=== PATIENT | female | born 1945 | race Asian ===

== ENCOUNTER 2018-04-10 12:26 | Emergency (ER) | payer OTHER ==
--- NOTE | 2018-04-10 15:09 | RAD ---
PA AND LATERAL CHEST: Date: 04/10/18 HISTORY: Low oxygen saturation. Diagnosed with flu today. COMPARISON: 09/05/16. FINDINGS: Cardiac silhouette and pulmonary vasculature are within normal limits. The lungs are clear. Degenerat yuridia changes are again seen in the spine. There has been no interval change from prior exam. IMPRESSION: No acute cardiopulmonary process. POS: [facility]
== END 2018-04-10 15:10 | disposition home or self-care (01) ==
LOC: ERS 12:26
DX: R05 Cough (principal)
CPT/HCPCS: 71046

== ENCOUNTER 2019-05-26 12:55 | Outpatient (CLI) | payer OTHER ==
--- NOTE | 2019-05-26 13:23 | MMO ---
Bilateral MAMMO Bilat Screen [facility]. CLINICAL HISTORY: Patient is 73 years old and is seen for screening. The patient has no family history of breast cancer. The patient has no personal history of cancer. VIEWS: The views performed were: bilateral craniocaudal and bilateral mediolateral oblique. FILMS COMPARED: The present examination has been compared to prior imaging studies performed at [facility] on 01/31/2016 and 02/15/2016. This study has been interpreted with the assistance of computer-aided detection. MAMMOGRAM FINDINGS: There are scattered fibroglandular densities. There are vascular calcifications seen in both breasts. There are no suspicious masses, suspicious calcifications, or new areas of architectural distortion. IMPRESSION: A ROUTINE FOLLOW-UP MAMMOGRAM IN 1 YEAR IS RECOMMENDED. ACR BI-RADS Category 2 - Benign finding MAMMOGRAPHY NOTE: 1. A negative mammogram report should not delay a biopsy if a dominant of clinically suspicious mass is present. 2. Approximately 10% to 15% of breast cancers are not detected by mammography. 3. Adenosis and dense breasts may obscure an underlying neoplasm. Reported by: OPAL FERGUSON MD Electonically Signed: [id number]
== END 2019-05-26 12:56 | disposition home or self-care (01) ==
LOC: BICMAMMO 12:55
PROVIDERS: ATTEND Family Medicine
DX: Z12.31 Encounter for screening mammogram for malignant neoplasm of breast (principal)
CPT/HCPCS: 77067

== ENCOUNTER 2020-08-03 15:25 | Inpatient (IN) | payer OTHER ==
[~2020-08-03 15:25] MED LIST: Iopamidol-370 76% 500 ML 1 ML ONE
[2020-08-03] MEDS ORDERED: Diltiazem 125 MG/25 ML ONE (16:13)
[2020-08-03 16:47] LABS: #Eosinphils 0.1 thou/uL (0.0-0.7); #Lymphocytes 1.5 thou/uL (1.20-3.40); #Monocytes 0.3 thou/uL (0.11-0.59); #Neutrophils 3.8 thou/uL (1.40-6.50); %Basophils 0.5 % (0.0-1.0); %Eosinophils 2.2 % (0.0-10.0); %Lymphocytes 26.6 % (21.0-51.0); %Monocytes 4.7 % (0.0-10.0); %Neutrophils 65.9 % (42.0-75.0); Hemoglobin 12.6 g/dL (12.0-16.0); Mean Corpuscular HGB CONC 32.2 g/dL (32.0-36.0); Mean Corpuscular Hemoglobin 29.2 pg (27.0-31.0); Mean Corpuscular Volume 90.5 fL (78.0-98.0); Platelet Count 267 thou/uL (130-400); RBC Distribution Width 12.8 % (11.5-14.5); Red Blood Cell (RBC) Count 4.32 mill/uL (4.20-5.40); White Blood Cell (WBC) Count 5.7 thou/uL (4.8-10.8)
[2020-08-03 17:07] LABS: ALT (SGPT) 13 U/L (8-55); AST (SGOT) 20 U/L (5-34); Albumin 3.5 g/dL (3.4-4.8); Alkaline Phosphatase 82 U/L (40-110); Anion Gap 13 mmol/L (10-20); BUN (Urea Nitrogen) 12 mg/dL (9.8-20.1); Bilirubin, Total 0.5 mg/dL (0.2-1.2); Calc. Creatinine Clearance 0 mL/min (70-130); Calcium 8.8 mg/dL (7.8-10.44); Carbon Dioxide 23 mmol/L (23-31); Chloride 104 mmol/L (98-107); Globulin 5.5 g/dL (2.4-3.5); Glucose 103 mg/dL (83-110); Magnesium 1.8 mg/dL (1.6-2.6); Potassium 3.7 mmol/L (3.5-5.1); Sodium 136 mmol/L (136-145)
[2020-08-03] MEDS ORDERED: Ondansetron ODT 4 MG TAB PO PRN (18:33)
[2020-08-03] MEDS ORDERED: Acetaminophen 325 MG TAB PO PRN (18:33)
[2020-08-03] MEDS ORDERED: Senokot S 8.6-50 MG TAB PO PRN (18:33)
[2020-08-03] MEDS ORDERED: Ondansetron PF 4 MG/2 ML Vial IVP PRN (18:33)
[2020-08-03] MEDS ORDERED: Diltiazem 125 MG in Sodium Chloride 0.9% 100 ML IVPB SCH (18:45)
[2020-08-03] MEDS ORDERED: Magnesium 2 GM/50 ML 2 GM in Premix Bag 1 BAG IVPB SCH (18:45)
[2020-08-03 19:04] LABS: Bacteria/HPF None Seen HPF (None Seen); Bilirubin Negative (Negative); Blood, Urine Negative (Negative); Clarity Clear (Clear); Glucose, Urine (Dipstick) Normal (Negative); Ketone, Urine Negative (Negative); Leukocyte Negative Leu/uL (Negative); Nitrite Negative (Negative); Protein, Urine (Dipstick) Negative (Neg-Trace); RBC/HPF 0-3 HPF (0-3); Specific Gravity, Urine 1.009 (1.002-1.036); Squamous Epithelial None Seen HPF (0-3); Urobilinogen Normal mg/dL (Less than 2); WBC/HPF 0-3 HPF (0-3); pH, Urine 6.5 (5.0-9.0)
[2020-08-03 19:24] LABS: INR-International Normal Ratio 1.1; PTT 28.6 sec (22.9-36.1); Prothrombin Time 14.3 sec (12.0-14.7)
[2020-08-03 19:53] LABS: Troponin I 0.016 ng/mL (< 0.028)
[2020-08-03 20:14] VITALS: BMI 25.2
[2020-08-03] MEDS ORDERED: Magnesium 2 GM/50 ML BAG (IN WATER) ONE (20:20)
[2020-08-03] MEDS ORDERED: Enoxaparin Sodium 60 MG/0.6 ML SYRINGE SC SCH (20:30)
[2020-08-03] MEDS ORDERED: Famotidine 20 MG TAB ONE (20:39)
[2020-08-03] MEDS ORDERED: Enoxaparin Sodium 60 MG/0.6 ML SYRINGE ONE (20:39)
[2020-08-03] MEDS: Famotidine 20 MG TAB PO SCH (20:53)
[2020-08-03 23:42] LABS: Troponin I 0.019 ng/mL (< 0.028)
[2020-08-04 02:33] LABS: SARS-CoV-2 PCR by NAA Not Detected (NotDetected)
[2020-08-04 04:30] LABS: #Eosinphils 0.1 thou/uL (0.0-0.7); #Lymphocytes 1.8 thou/uL (1.20-3.40); #Monocytes 0.4 thou/uL (0.11-0.59); #Neutrophils 2.6 thou/uL (1.40-6.50); %Basophils 0.6 % (0.0-1.0); %Eosinophils 2.7 % (0.0-10.0); %Lymphocytes 37.2 % (21.0-51.0); %Monocytes 7.1 % (0.0-10.0); %Neutrophils 52.5 % (42.0-75.0); Hemoglobin 11.9 g/dL (12.0-16.0); Mean Corpuscular Hemoglobin 29.9 pg (27.0-31.0); Mean Corpuscular Volume 90.6 fL (78.0-98.0); Platelet Count 249 thou/uL (130-400); RBC Distribution Width 12.7 % (11.5-14.5); Red Blood Cell (RBC) Count 3.97 mill/uL (4.20-5.40); White Blood Cell (WBC) Count 4.9 thou/uL (4.8-10.8)
[2020-08-04 04:58] LABS: Anion Gap 12 mmol/L (10-20); BUN (Urea Nitrogen) 9 mg/dL (9.8-20.1); Calc. Creatinine Clearance 64 mL/min (70-130); Calcium 8.4 mg/dL (7.8-10.44); Carbon Dioxide 22 mmol/L (23-31); Cardiac Risk 2.9 (Less than 4.5); Chloride 106 mmol/L (98-107); Cholesterol 103 mg/dl (< 200 Desired); Glucose 118 mg/dL (83-110); HDL Cholesterol 35 mg/dL (>60 Neg Risk); LDL Cholesterol, Calculated 52 mg/dL; Magnesium 2.1 mg/dL (1.6-2.6); Potassium 4.1 mmol/L (3.5-5.1); Sodium 136 mmol/L (136-145); Triglycerides 80 mg/dL (Less than 150)
[2020-08-04] MEDS ORDERED: Enoxaparin Sodium 60 MG/0.6 ML SYRINGE SC SCH (09:00)
[2020-08-04] MEDS ORDERED: Metoprolol Tartrate 25 MG TAB PO SCH (09:00)
[2020-08-04] MEDS: Famotidine 20 MG TAB PO SCH ×2 (09:18→22:22)
[2020-08-04] MEDS: Aspirin 81 mg Enteric Coated Tablet PO SCH (09:18)
[2020-08-04] MEDS: Apixaban 5 MG TAB PO SCH (22:22)
[2020-08-05 04:43] LABS: #Eosinphils 0.2 thou/uL (0.0-0.7); #Lymphocytes 1.5 thou/uL (1.20-3.40); #Monocytes 0.2 thou/uL (0.11-0.59); #Neutrophils 2.1 thou/uL (1.40-6.50); %Basophils 0.9 % (0.0-1.0); %Eosinophils 4.4 % (0.0-10.0); %Monocytes 5.5 % (0.0-10.0); %Neutrophils 52.3 % (42.0-75.0); Hemoglobin 12.2 g/dL (12.0-16.0); Mean Corpuscular Hemoglobin 29.9 pg (27.0-31.0); Mean Corpuscular Volume 90.5 fL (78.0-98.0); Mean Platelet Volume 6.8 fL (7.4-10.4); Platelet Count 258 thou/uL (130-400); RBC Distribution Width 12.8 % (11.5-14.5); Red Blood Cell (RBC) Count 4.07 mill/uL (4.20-5.40)
[2020-08-05 05:08] LABS: Anion Gap 11 mmol/L (10-20); BUN (Urea Nitrogen) 14 mg/dL (9.8-20.1); Calc. Creatinine Clearance 62 mL/min (70-130); Calcium 8.6 mg/dL (7.8-10.44); Carbon Dioxide 24 mmol/L (23-31); Chloride 108 mmol/L (98-107); Glucose 117 mg/dL (83-110); Magnesium 1.9 mg/dL (1.6-2.6); Phosphorus 3.5 mg/dL (2.3-4.7); Potassium 3.8 mmol/L (3.5-5.1); Sodium 139 mmol/L (136-145)
[2020-08-05] MEDS: Aspirin 81 mg Enteric Coated Tablet PO SCH (09:52)
[2020-08-05] MEDS: Famotidine 20 MG TAB PO SCH ×2 (09:52→21:05)
[2020-08-05] MEDS: Apixaban 5 MG TAB PO SCH ×2 (09:52→21:05)
[2020-08-05] MEDS: Digoxin 0.25 MG TAB PO SCH (09:52)
[2020-08-05] MEDS: Metoprolol Tartrate 25 MG TAB PO SCH (21:05)
[2020-08-06 04:33] LABS: #Basophils 0.1 thou/uL (0.0-0.2); #Eosinphils 0.2 thou/uL (0.0-0.7); #Lymphocytes 1.6 thou/uL (1.20-3.40); #Monocytes 0.2 thou/uL (0.11-0.59); #Neutrophils 1.7 thou/uL (1.40-6.50); %Basophils 1.5 % (0.0-1.0); %Eosinophils 5.1 % (0.0-10.0); %Lymphocytes 41.6 % (21.0-51.0); %Monocytes 5.8 % (0.0-10.0); Hemoglobin 12.6 g/dL (12.0-16.0); Mean Corpuscular HGB CONC 33.5 g/dL (32.0-36.0); Mean Corpuscular Hemoglobin 30.5 pg (27.0-31.0); Mean Corpuscular Volume 91.3 fL (78.0-98.0); Mean Platelet Volume 6.8 fL (7.4-10.4); Platelet Count 253 thou/uL (130-400); RBC Distribution Width 12.8 % (11.5-14.5); Red Blood Cell (RBC) Count 4.13 mill/uL (4.20-5.40); White Blood Cell (WBC) Count 3.7 thou/uL (4.8-10.8)
[2020-08-06 04:49] LABS: Anion Gap 13 mmol/L (10-20); BUN (Urea Nitrogen) 13 mg/dL (9.8-20.1); Calc. Creatinine Clearance 66 mL/min (70-130); Calcium 9.1 mg/dL (7.8-10.44); Carbon Dioxide 21 mmol/L (23-31); Chloride 108 mmol/L (98-107); Glucose 120 mg/dL (83-110); Magnesium 1.8 mg/dL (1.6-2.6); Phosphorus 4.1 mg/dL (2.3-4.7); Sodium 138 mmol/L (136-145)
[2020-08-06] MEDS: Famotidine 20 MG TAB PO SCH ×2 (10:23→20:26)
[2020-08-06] MEDS: Digoxin 0.25 MG TAB PO SCH (10:24)
[2020-08-06] MEDS: Aspirin 81 mg Enteric Coated Tablet PO SCH (10:24)
[2020-08-06] MEDS: Apixaban 5 MG TAB PO SCH ×2 (10:24→20:26)
[2020-08-06] MEDS: Metoprolol Tartrate 25 MG TAB PO SCH ×2 (10:24→20:26)
[2020-08-07] MEDS: Digoxin 0.25 MG TAB PO SCH (09:03)
[2020-08-07] MEDS: Metoprolol Tartrate 25 MG TAB PO SCH ×2 (09:03→21:01)
[2020-08-07] MEDS: Famotidine 20 MG TAB PO SCH ×2 (09:03→21:01)
[2020-08-07] MEDS: Aspirin 81 mg Enteric Coated Tablet PO SCH (09:03)
[2020-08-07] MEDS: Apixaban 5 MG TAB PO SCH ×2 (09:03→21:01)
[2020-08-08 04:30] LABS: Hemoglobin 13.1 g/dL (12.0-16.0); Platelet Count 260 thou/uL (130-400)
[2020-08-08] MEDS: Digoxin 0.25 MG TAB PO SCH (08:36)
[2020-08-08] MEDS: Metoprolol Tartrate 25 MG TAB PO SCH (08:36)
[2020-08-08] MEDS: Aspirin 81 mg Enteric Coated Tablet PO SCH (08:36)
[2020-08-08] MEDS: Apixaban 5 MG TAB PO SCH (08:37)
[2020-08-08] MEDS: Famotidine 20 MG TAB PO SCH (09:13)
[2020-08-08 13:09] VITALS: BP 114/58; TEMP 97.3
== END 2020-08-08 14:23 | disposition home or self-care (01) | DRG 310 ==
LOC: ERS 15:25 → ERHOLD 18:18 → 2NO 08-04 00:14
PROVIDERS: ADMIT Internal Medicine; ATTEND Internal Medicine
DX: I48.91 Unspecified atrial fibrillation (principal); M06.9 Rheumatoid arthritis, unspecified; E83.42 Hypomagnesemia; N18.2 Chronic kidney disease, stage 2 (mild); I08.0 Rheumatic disorders of both mitral and aortic valves; Z20.822 Contact with and (suspected) exposure to COVID-19; R06.00 Dyspnea, unspecified
CPT/HCPCS: 36415; 71045; 71275; 80048; 80053; 80061; 81001; 82565; 83735; 83880; 84100; 84443; 84484; 85014; 85018; 85025; 85049; 85379; 85610; 85730; 87635; 93005; 93306; 94760; 96365; 96366; 96376; J1650; J3475; Q9967; U0003; U0005

== ENCOUNTER 2020-08-29 14:47 | Outpatient (CLI) | payer SELFPAY ==
[2020-08-29 15:45] LABS: #Eosinphils 0.2 10x3/uL (0.0-0.5); #Monocytes 0.5 10x3/uL (0.0-1.1); #Neutrophils 3.6 10x3/uL (1.5-8.4); %Basophils 0.7 % (0.0-2.0); %Eosinophils 2.9 % (0.0-6.0); %Lymphocytes 27.7 % (18.0-47.0); %Monocytes 7.8 % (0.0-10.0); %Neutrophils 60.4 % (40.0-75.0); Hemoglobin 9.2 g/dL (12.0-15.5); Mean Corpuscular HGB CONC 32.5 g/dL (32.0-36.0); Mean Corpuscular Hemoglobin 28.6 pg (27.0-33.0); Mean Corpuscular Volume 87.9 fl (81.6-98.3); Mean Platelet Volume 9.4 fl (7.4-10.4); RBC Distribution Width 13.5 % (11.5-14.5); Red Blood Cell (RBC) Count 3.22 10x6/uL (3.90-5.03); White Blood Cell (WBC) Count 5.9 10x3/uL (3.5-10.5)
[2020-08-29 15:47] LABS: Platelet Count 289 10x3/uL (150-450)
[2020-08-29 16:05] LABS: Anion Gap 15 mmol/L (10-20); BUN (Urea Nitrogen) 10 mg/dL (9.8-20.1); Calc. Creatinine Clearance 0 mL/min (70-130); Calcium 8.7 mg/dL (7.8-10.44); Carbon Dioxide 22 mmol/L (23-31); Chloride 103 mmol/L (98-107); Glucose 118 mg/dL (83-110); Potassium 4.4 mmol/L (3.5-5.1); Sodium 136 mmol/L (136-145)
[2020-08-30 01:18] LABS: SARS-CoV-2 PCR by NAA Not Detected (NotDetected)
== END 2020-08-29 14:48 | disposition home or self-care (01) ==
LOC: LABBT 14:47
PROVIDERS: ATTEND Internal Medicine Cardiovascular Disease
DX: Z01.818 Encounter for other preprocedural examination (principal); Z20.822 Contact with and (suspected) exposure to COVID-19; I48.91 Unspecified atrial fibrillation
CPT/HCPCS: 80048; 85025; 87635; 93005; 93010; U0003; U0005

== ENCOUNTER 2020-09-01 11:22 | Day surgery (SDC) | payer OTHER | END 2020-09-01 12:54 | disposition home or self-care (01) | LOC: CCL 11:22 | PROVIDERS: ATTEND Internal Medicine Cardiovascular Disease | DX: I48.19 Other persistent atrial fibrillation (principal); Z53.8 Procedure and treatment not carried out for other reasons; Z79.01 Long term (current) use of anticoagulants; Z79.82 Long term (current) use of aspirin; Z79.899 Other long term (current) drug therapy | CPT/HCPCS: 93005; 93010 ==

== ENCOUNTER 2020-11-21 15:11 | Inpatient (IN) | payer OTHER, SELFPAY ==
[2020-11-21 16:15] LABS: #Eosinphils 0.1 thou/uL (0.0-0.7); #Lymphocytes 1.4 thou/uL (1.20-3.40); #Monocytes 0.2 thou/uL (0.11-0.59); #Neutrophils 3.1 thou/uL (1.40-6.50); %Basophils 0.1 % (0.0-1.0); %Eosinophils 2.4 % (0.0-10.0); %Lymphocytes 29.2 % (21.0-51.0); %Monocytes 4.5 % (0.0-10.0); %Neutrophils 63.9 % (42.0-75.0); Hemoglobin 12.6 g/dL (12.0-16.0); Mean Corpuscular HGB CONC 33.7 g/dL (32.0-36.0); Mean Corpuscular Hemoglobin 30.7 pg (27.0-31.0); Mean Platelet Volume 6.9 fL (7.4-10.4); Platelet Count 247 thou/uL (130-400); RBC Distribution Width 12.9 % (11.5-14.5); Red Blood Cell (RBC) Count 4.09 mill/uL (4.20-5.40); White Blood Cell (WBC) Count 4.8 thou/uL (4.8-10.8)
[2020-11-21] MEDS ORDERED: Aspirin Chewable 81 MG TAB ONE (16:15)
[2020-11-21] MEDS ORDERED: Diltiazem 125 MG/25 ML ONE ×2 (16:16→16:19)
[2020-11-21 16:33] LABS: ALT (SGPT) 9 U/L (8-55); AST (SGOT) 24 U/L (5-34); Albumin 3.4 g/dL (3.4-4.8); Alkaline Phosphatase 82 U/L (40-110); Anion Gap 11 mmol/L (10-20); BUN (Urea Nitrogen) 10 mg/dL (9.8-20.1); Bilirubin, Total 0.5 mg/dL (0.2-1.2); Calc. Creatinine Clearance 0 mL/min (70-130); Calcium 8.7 mg/dL (7.8-10.44); Carbon Dioxide 24 mmol/L (23-31); Chloride 103 mmol/L (98-107); Globulin 6.3 g/dL (2.4-3.5); Glucose 150 mg/dL (83-110); Potassium 4.8 mmol/L (3.5-5.1); Protein, Total 9.7 g/dL (5.8-8.1); Sodium 133 mmol/L (136-145)
[2020-11-21 16:36] LABS: CK (CPK) 139 U/L (29-168); Lipase 42 U/L (8-78)
[2020-11-21 17:06] LABS: Bilirubin Negative (Negative); Blood, Urine Negative (Negative); Clarity Clear (Clear); Glucose, Urine (Dipstick) Normal (Negative); Ketone, Urine Negative (Negative); Leukocyte Negative Leu/uL (Negative); Nitrite Negative (Negative); Protein, Urine (Dipstick) Negative (Neg-Trace); Specific Gravity, Urine 1.008 (1.002-1.036); Urobilinogen Normal mg/dL (Less than 2)
[2020-11-21] MEDS ORDERED: Heparin 1,000 UNITS/500 ML BAG (ARTLINE) ONE (17:40)
[2020-11-21] MEDS ORDERED: Lidocaine 1% (PF) 30 ML VIAL ONE (17:40)
[2020-11-21 18:07] LABS: Digoxin Less than 0.15 ng/mL (0.8-2.0)
[2020-11-21 21:06] VITALS: BMI 24.9
[2020-11-21] MEDS: Sodium Chloride 0.9% 1,000 ML IV SCH (22:14)
[2020-11-22 03:51] LABS: #Eosinphils 0.1 thou/uL (0.0-0.7); #Lymphocytes 1.4 thou/uL (1.20-3.40); #Monocytes 0.3 thou/uL (0.11-0.59); #Neutrophils 3.2 thou/uL (1.40-6.50); %Basophils 0.3 % (0.0-1.0); %Eosinophils 2.3 % (0.0-10.0); %Lymphocytes 27.8 % (21.0-51.0); %Monocytes 6.5 % (0.0-10.0); %Neutrophils 63.1 % (42.0-75.0); Hemoglobin 12.5 g/dL (12.0-16.0); Mean Corpuscular HGB CONC 32.9 g/dL (32.0-36.0); Mean Corpuscular Hemoglobin 30.4 pg (27.0-31.0); Mean Corpuscular Volume 92.4 fL (78.0-98.0); Platelet Count 252 thou/uL (130-400); RBC Distribution Width 12.8 % (11.5-14.5); White Blood Cell (WBC) Count 5.1 thou/uL (4.8-10.8)
[2020-11-22 04:10] LABS: ALT (SGPT) 9 U/L (8-55); AST (SGOT) 15 U/L (5-34); Albumin 3.2 g/dL (3.4-4.8); Alkaline Phosphatase 77 U/L (40-110); Anion Gap 11 mmol/L (10-20); BUN (Urea Nitrogen) 12 mg/dL (9.8-20.1); Bilirubin, Total 0.6 mg/dL (0.2-1.2); Calc. Creatinine Clearance 68 mL/min (70-130); Calcium 8.8 mg/dL (7.8-10.44); Carbon Dioxide 24 mmol/L (23-31); Chloride 106 mmol/L (98-107); Globulin 5.4 g/dL (2.4-3.5); Glucose 126 mg/dL (83-110); Potassium 3.8 mmol/L (3.5-5.1); Protein, Total 8.6 g/dL (5.8-8.1); Sodium 137 mmol/L (136-145)
[2020-11-22] MEDS: Sodium Chloride 0.9% 1,000 ML IV SCH ×3 (05:18→23:11)
[2020-11-23] MEDS ORDERED: Iopamidol 370 76% 50 ML VIAL FS ONE (08:42)
[2020-11-23] MEDS ORDERED: CEFAZOLIN 1 GM VIAL ONE (09:48)
[2020-11-23] MEDS ORDERED: Gentamicin 80 MG/2 ML VIAL ONE (09:48)
[2020-11-23] MEDS ORDERED: Fentanyl 100 MCG/2 ML VIAL ONE (09:49)
[2020-11-23] MEDS ORDERED: Midazolam HCl 2 mg/2 ml Vial ONE (09:49)
[2020-11-23] MEDS ORDERED: Lidocaine 1% (PF) 30 ML VIAL ONE (10:51)
[2020-11-23] MEDS: Sodium Chloride 0.9% 1,000 ML IV SCH (10:53)
[2020-11-23] MEDS ORDERED: Flecainide 50 MG TAB PO SCH (13:00)
[2020-11-23] MEDS: Cephalexin 250 MG CAP PO SCH ×2 (15:30→21:02)
[2020-11-23] MEDS: Acetaminophen 325 MG TAB PO PRN (18:22)
[2020-11-24] MEDS: Cephalexin 250 MG CAP PO SCH ×2 (08:48→16:29)
[2020-11-24] MEDS: Acetaminophen 325 MG TAB PO PRN (08:57)
[2020-11-24] MEDS ORDERED: Flecainide 50 MG TAB PO SCH ×2 (09:00)
[2020-11-24 12:21] VITALS: BP 110/59
[2020-11-24 16:06] VITALS: TEMP 98.2
[2020-11-25] MEDS ORDERED: Apixaban 2.5 MG TAB PO SCH (09:00)
== END 2020-11-24 18:55 | disposition home or self-care (01) | DRG 243 ==
LOC: ERS 15:11 → SDC/OP 18:10 → CCU 19:00 → 2NO 11-23 11:34
PROVIDERS: ADMIT Internal Medicine Cardiovascular Disease; ATTEND Internal Medicine Cardiovascular Disease
PROC: 0JH606Z Insertion of Pacemaker, Dual Chamber into Chest Subcutaneous Tissue and Fascia, Open Approach (ICD-10-PCS; principal; 2020-11-23)
PROC: 02H63JZ Insertion of Pacemaker Lead into Right Atrium, Percutaneous Approach (ICD-10-PCS; 2020-11-23)
PROC: 02HK3JZ Insertion of Pacemaker Lead into Right Ventricle, Percutaneous Approach (ICD-10-PCS; 2020-11-23)
DX: I49.5 Sick sinus syndrome (principal); I48.19 Other persistent atrial fibrillation; I48.0 Paroxysmal atrial fibrillation; M06.9 Rheumatoid arthritis, unspecified; N18.2 Chronic kidney disease, stage 2 (mild); R77.9 Abnormality of plasma protein, unspecified; I45.5 Other specified heart block; Z79.82 Long term (current) use of aspirin; Z79.01 Long term (current) use of anticoagulants
CPT/HCPCS: 33208; 33210; 36005; 36415; 71045; 75820; 76942; 80053; 80162; 81003; 82550; 83690; 84443; 84484; 85025; 93005; 93010; 93306; 93798; 96374; 99152; 99153; J0690; J1580; J2001; J2250; J3010; Q9967

== ENCOUNTER 2021-04-10 11:40 | Outpatient (CLI) | payer OTHER | END 2021-04-10 11:41 | disposition home or self-care (01) | LOC: BICRAD 11:40 | PROVIDERS: ATTEND Registered Nurse Community Health | DX: R05.9 Cough, unspecified (principal) | CPT/HCPCS: 71046 ==

== ENCOUNTER 2023-03-14 10:38 | Outpatient (CLI) | payer OTHER | END 2023-03-14 10:39 | disposition home or self-care (01) | LOC: BICMAMMO 10:38 | PROVIDERS: ATTEND Family Medicine | DX: Z12.31 Encounter for screening mammogram for malignant neoplasm of breast (principal) | CPT/HCPCS: 77067 ==

== ENCOUNTER 2023-10-23 12:08 | Emergency (ER) | payer OTHER, SELFPAY | END 2023-10-23 13:31 | disposition home or self-care (01) | LOC: ERS 12:08 | DX: S00.03XA Contusion of scalp, initial encounter (principal); S60.211A Contusion of right wrist, initial encounter; Z79.01 Long term (current) use of anticoagulants; W19.XXXA Unspecified fall, initial encounter; Y93.01 Activity, walking, marching and hiking | CPT/HCPCS: 70450 ==